=== PATIENT | male | born 1965 | race Caucasian/White ===

== ENCOUNTER 2018-03-25 20:41 | Inpatient (IN) | payer SELFPAY ==
[~2018-03-25] VITALS: Ht 167.6 cm; Wt 68.2 kg
[2018-03-25] VITALS (8 sets, daily range): BP systolic 114; BP diastolic 91; PULSE 114; TEMP 97.8; O2SAT 87–100
[~2018-03-25 20:41] MED LIST: ASPIRIN E.C. 8181 MG PO; NIGHT-TIME COL300 ML
[2018-03-25 21:27] LABS: ARTERIAL BLD GAS O2 SATURATION 94.5 % (92-100); ARTERIAL BLD GAS TCO2 CT 23.3; ARTERIAL BLOOD GAS BASE EXCESS -3.2 (-2-2); ARTERIAL BLOOD GAS HCO3 22.1 meq/L (22-26); ARTERIAL BLOOD GAS PCO2 40.5 mmHg (35-45); ARTERIAL BLOOD GAS PO2 77.3 mmHg (80-100); ARTERIAL BLOOD GAS pH 7.35 (7.35-7.45)
[2018-03-25] MEDS ORDERED: ALEVE 220MG220 MG PO (21:27)
[2018-03-25 21:28] LABS: BASO # 0.1 (0.0-0.2); BASO % 0.4 % (0.0-2.0); EOS # 0.5 (0.0-0.7); EOS % 2.3 % (0-4.0); GRAN # 17.8 (1.4-6.5); GRAN % 91.7 % (42.2-75.2); HEMATOCRIT 44.6 % (42.0-52.0); HEMOGLOBIN 14.5 g/dl (13.5-18.0); LYMPH # 0.6 (1.2-3.4); LYMPH % 2.8 % (20.0-51.0); MEAN CELL VOLUME 83 fl (80.0-100.0); MEAN CORPUSCULAR HEMOGLOBIN 27 pg (27.0-31.0); MEAN CORPUSCULAR HGB CONC 33 g/dl (33.0-37.0); MEAN PLATELET VOLUME 10.4 fl (7.4-10.4); MONO # 0.4 (0.1-0.6); MONO % 2.3 % (1.7-9.3); PLATELET COUNT 258 K/mm3 (130-400); RED BLOOD COUNT 5.37 M/mm3 (4.20-5.60); REDCELL DISTRIBUTION WIDTH-CV 15.6 % (11.5-14.5)
[2018-03-25] MEDS ORDERED: ASPIRIN 32325 MG/TAB PO (21:28)
[2018-03-25 21:38] LABS: ALBUMIN 3.1 gm/dL (3.5-5.0); BILIRUBIN,TOTAL 2.8 mg/dL (0.0-1.0); CALCIUM 8.5 mg/dL (8.4-10.2); CREATININE, serum 3.28 mg/dL (0.66-1.25); POTASSIUM 5.4 mmol/L (3.4-5.0); TOTAL PROTEIN 6.3 gm/dL (6.4-8.2)
[2018-03-25 22:14] LABS: TROPONIN-I 0.034 ng/mL (0.000-0.034)
[2018-03-25 22:50] LABS: INR 1.3 (0.8-3.0); PROTHROMBIN TIME 14.4 SECONDS (9.7-12.8)
[2018-03-25 22:52] LABS: PARTIAL THROMBOPLASTIN TIME 36.1 SECONDS (26.0-37.0)
[2018-03-25 22:58] LABS: CHOLESTEROL RISK RATIO 4.2
--- NOTE | 2018-03-25 23:10 | NUR ---
Received telephone report from STUART Mckenzie.
--- NOTE | 2018-03-25 23:45 | NUR ---
Patients scrotum is massively edematous. Circular patch approximately 4X4 inches noted to the right side of scrotum. Area appears to have white fungal growth. Groin is reddened and excoriated. Coccyx extending down towards medial buttocks excortiated and raw. Area cleansed and Allyvn bandage applied. Ulceration also noted to lateral left ankle. wound bed shallow pink with white granulation tissue present. Heel boot provided for elevation and comfort.
[2018-03-26] VITALS (401 sets, daily range): BP systolic 91–114; BP diastolic 68–91; PULSE 105–114; TEMP 97.8–98.1; O2SAT 44–100
--- NOTE | 2018-03-26 00:50 | NUR ---
Attempted matthews placement and was unsucessful. switchboard operator supervisor at bedside attempting at this time.
[2018-03-26 02:41] LABS: COLLECTION METHOD CLEAN CATCH
[2018-03-26 03:23] LABS: MUCOUS Present /lpf; PH 5 (5-8); SQUAMOUS EPITHELIAL 0-2 /hpf; URINE APPEARANCE Cloudy; URINE BACTERIA None Seen /hpf; URINE BILIRUBIN Negative (NEGATIVE); URINE BLOOD 1+ (NEGATIVE); URINE COLOR Amber; URINE GLUCOSE Negative (NEGATIVE); URINE KETONE Negative (NEGATIVE); URINE LEUKOCYTE ESTERASE Negative (NEGATIVE); URINE NITRATE Negative (NEGATIVE); URINE PROTEIN(semi-quant) 1+ (NEGATIVE); URINE UROBILINOGEN >=4.0 mg/dL (NEGATIVE)
--- NOTE | 2018-03-26 04:00 | NUR ---
Patient resting in bed with eyes shut; no concerns at this time.
--- NOTE | 2018-03-26 05:11 | NUR ---
Began 24 hr urine collection at 0510.
[2018-03-26 05:41] LABS: BASO # 0.1 (0.0-0.2); BASO % 0.5 % (0.0-2.0); EOS # 1.3 (0.0-0.7); EOS % 8.4 % (0-4.0); GRAN # 13.4 (1.4-6.5); GRAN % 83.2 % (42.2-75.2); HEMATOCRIT 38.7 % (42.0-52.0); HEMOGLOBIN 12.7 g/dl (13.5-18.0); LYMPH # 0.7 (1.2-3.4); LYMPH % 4.2 % (20.0-51.0); MEAN CELL VOLUME 82 fl (80.0-100.0); MEAN CORPUSCULAR HEMOGLOBIN 27 pg (27.0-31.0); MEAN CORPUSCULAR HGB CONC 33 g/dl (33.0-37.0); MEAN PLATELET VOLUME 10.3 fl (7.4-10.4); MONO # 0.5 (0.1-0.6); MONO % 3.1 % (1.7-9.3); PLATELET COUNT 235 K/mm3 (130-400); RED BLOOD COUNT 4.72 M/mm3 (4.20-5.60); REDCELL DISTRIBUTION WIDTH-CV 15.3 % (11.5-14.5)
[2018-03-26 05:52] LABS: ALBUMIN 2.5 gm/dL (3.5-5.0); BILIRUBIN,TOTAL 1.7 mg/dL (0.0-1.0); CALCIUM 7.9 mg/dL (8.4-10.2); CREATININE, serum 3.06 mg/dL (0.66-1.25); POTASSIUM 5.2 mmol/L (3.4-5.0); TOTAL PROTEIN 5.3 gm/dL (6.4-8.2)
--- NOTE | 2018-03-26 08:00 | NUR ---
PT ALERT AND ORIENTED X4. PT PLEASANT AND COOPERATIVE. PT LUNGS CLEAR TO UPPER LOBES, DIM TO BB. PT DENIES COUGH. PT HAS MODERATE AMT OF ANASCARA. REDNESS AND EDEMA NOTED FROM MID ABDOMEN TO BLL. PT'S GROIN, SCROTUM VERY EXCORIATED, SEEPING, AND TENDER. PT HAS SEROUS AND PURULENT DRAINAGE NOTED FROM SCROTUM, GROIN, AND COCCYX. COCCYX RED AND EXCORIATED. PT ALSO HAS ULCERATION TO LEFT OUTER TROCHANTER OF ANKLE. SMALL SCABBED AREAS NOTED TO BILATERAL INNER ANKLES. NO DRAINAGE FROM THOSE AREAS.
--- NOTE | 2018-03-26 09:05 | NUR ---
PT TAKEN TO CT VIA BED BY PAIGE IN RADIOLOGY.
--- NOTE | 2018-03-26 09:45 | NUR ---
SPOKE WITH DR BUTLER REGARDING PT AND UPDATED HIM ON PT'S TROPONIN, TACHYCARDIA, AND FREQUENT PVCS.
--- NOTE | 2018-03-26 10:15 | NUR ---
Initial visit; Patient thanked Account Information Clerk for looking in on him and offering encouragement and prayer.
--- NOTE | 2018-03-26 10:20 | NUR ---
DR SEGOVIA CALLED REGARDING PATIENT'S WOUNDS/SKIN PER DR JALLOH'S REQUEST.
--- NOTE | 2018-03-26 10:30 | NUR ---
SPOKE WITH DR SANTOS REGARDING IMAGING FOR PT'S SKIN ISSUES. DR SANTOS RECOMMENDS OBTAINING CT PELVIS TO EVALUATE FOR GAS, WITHOUT CONTRAST D/T PT'S CREATININE.
--- NOTE | 2018-03-26 11:00 | NUR ---
PT'S GROIN, COCCYX, PERINAL AREA, LEFT OUTER ANKLE, AND SCROTUM CLEANSED WITH SOAP AND WATER. NYSTATIN POWDER APPLIED TO GROIN, LOKESH AREA, AND COCCYX. NYSTATIN CREAM APPLIED TO SCROTUM AND LEFT OUTER ANKLE ULCER. SCRTOUM ELEVATED USING CHUX PAD. LEFT ANKLE COVERED WITH GAUZE SPONGES AND COBAIN. LEFT HEEL PROTECTOR REAPPLIED AND LEFT ANKLE ELEVATED.
--- NOTE | 2018-03-26 11:15 | NUR ---
US HERE TO PERFORM RENAL US.
--- NOTE | 2018-03-26 11:32 | NUR ---
Plan to DC home unless otherwise specified by . DONALD met with patient to discuss care. Patient reports that he has a GF at home that helps hime out and and EMR contact Nafisa Mackenzie . Pt reports the use os a cane everyday. Patient indicated difficulty breathing while walking, may need RT assessment. Patient reports that he resides in [place]. NO PCP reported. PT declines homehealth and uses [facility] locally for RX. DONALD made contact with financial to assist PT with bill or any health coverage. DONALD will continue to follow care.
--- NOTE | 2018-03-26 13:47 | NUR ---
BA REVELES INSERTING PICC LINE AT THIS TIME.
--- NOTE | 2018-03-26 13:55 | NUR ---
PORTABLE CHEST XRAY PERFORMED TO VERIFY PICC LINE PLACEMENT.
--- NOTE | 2018-03-26 14:01 | NUR ---
OR UPDATED AND STATED THEY WILL COME TO RETRIEVE PATIENT AROUND 1420. CONSENT OBTAINED FROM PT. PT AND GF UPDATED ON PLAN OF CARE.
--- NOTE | 2018-03-26 14:30 | NUR ---
PATIENT LEAVES FOR OR AT THIS TIME
--- NOTE | 2018-03-26 14:35 | NUR ---
PT TAKEN TO OR FOR I&D BY OR STAFF
--- NOTE | 2018-03-26 15:35 | NUR ---
ETT MEYER PLACED ON ETT. MAINTAINED ETT AT 21CM AT LIP. 8.[address] 14 [place]ER OGT INSERTED TO 70CM. PLACEMENT VERIFIED WITH AIR BOLUS AND ASPIRATION OF GASTRIC CONTENTS. PROPOFOL AND FENTANYL INITIATED FOR SEDATION. WRIST RESTRAINTS APPLIED. HEAD-TO-TOE ASSESSMENT PERFORMED.
--- NOTE | 2018-03-26 15:35 | NUR ---
PT UNEXPECTEDLY BROUGHT FROM OR BY OR STAFF AND JAMIE STEVENS. RT IN ICU AT THE TIME OF PATIENT'S ARRIVAL, RT UNAWARE PT WAS ON HIS WAY BACK TO THE UNIT AT THIS TIME. JAMIE STEVENS CALLED TO REQUEST VENT PRIOR BUT ICU STAFF AND RT WERE NOT MADE AWARE OF PT COMING BACK FROM OR. PT LOOSELY HAD AN ETT IN PLACE, SERCURED WITH TAPE. PT NOT ON VENT TO TRANSPORT AND BEING SCANTLY BAGGED BY JAMIE STEVENS. WHEN ASKED HOW PT'S BP WAS MAINTAINING JAMIE STEVENS STATED "WE WILL FIND OUT WHEN WE HOOK HIM UP TO YOUR MONITOR". PT NOT PLACED ON TRANSPORT MONITOR FOR TRANSFER FROM OR. NO PULSE OX IN PLACE, NO BP IN PLACE, NO TELMETRY IN PLACE. ICU STAFF STATED THAT TYPICALLY PER PROTOCOL OR STAFF SHOULD GIVE REPORT PRIOR TO TRANSFERRING PATIENT. JAMIE STEVENS STATED "REPORT ON WHAT!?" I THEN ASKED IF I COULD BE GIVEN REPORT ON WHAT HAPPENED/WHAT WAS FOUND IN OR, WHAT SIZE ETT TUBE WAS INSERTED AND AT WHAT LENGTH. I THEN ASKED WHY PATIENT HAD NOT BEEN EXTUBATED AND IF THEY WERE NOT ABLE TO. JAMIE STEVENS THEN STATED "BC THEY TOLD US TO KEEP HIM INTUBATED". I THEN STATED THAT IT WAS A GOOD THING RT WAS IN THE UNIT UPON TRANSFER AND JAMIE STEVENS STATED "I CALLED RT" ALLEN RT IN ROOM AND STATED SHE WAS NOT CALLED. JAMIE THEN STATED "WELL I CALLED RT FOR A VENT". I THEN STATED "YES YOU CALLED FOR A VENT BUT NOT TO NOTIFY US OR RT THAT THE PATIENT WAS ON THEIR WAY FROM OR".
--- NOTE | 2018-03-26 15:39 | NUR ---
PATIENT RETURNS FROM OR, INTUBATED. VENTILATOR READY. SEDATION STARTED PER DR. JALLOH ORDERS.
--- NOTE | 2018-03-26 15:45 | NUR ---
ATTEMPTED TO FIND PT'S GF TO UPDATE HER BUT WAS UNSUCCESSFUL.
--- NOTE | 2018-03-26 16:02 | NUR ---
PT CAME BACK FROM OR ABOUT 20 MIN AGO. VENT PUT IN PLACE ORDER PER DR. JALLOH. NO DISTRESS NOTED AT THIS TIME.
[2018-03-26 16:42] LABS: ARTERIAL BLD GAS O2 SATURATION 92.2 % (92-100); ARTERIAL BLD GAS TCO2 CT 23.4; ARTERIAL BLOOD GAS BASE EXCESS -5.2 (-2-2); ARTERIAL BLOOD GAS HCO3 21.9 meq/L (22-26); ARTERIAL BLOOD GAS PCO2 49.1 mmHg (35-45); ARTERIAL BLOOD GAS PO2 71.7 mmHg (80-100); ARTERIAL BLOOD GAS pH 7.27 (7.35-7.45)
[2018-03-26 16:58] LABS: BASO # 0.1 (0.0-0.2); BASO % 0.4 % (0.0-2.0); EOS # 0.8 (0.0-0.7); GRAN # 14.2 (1.4-6.5); HEMATOCRIT 38.1 % (42.0-52.0); HEMOGLOBIN 12.4 g/dl (13.5-18.0); LYMPH # 0.6 (1.2-3.4); LYMPH % 3.4 % (20.0-51.0); MEAN CELL VOLUME 82 fl (80.0-100.0); MEAN CORPUSCULAR HEMOGLOBIN 27 pg (27.0-31.0); MEAN CORPUSCULAR HGB CONC 33 g/dl (33.0-37.0); MEAN PLATELET VOLUME 10.8 fl (7.4-10.4); MONO # 0.5 (0.1-0.6); MONO % 3.2 % (1.7-9.3); PLATELET COUNT 250 K/mm3 (130-400); RED BLOOD COUNT 4.63 M/mm3 (4.20-5.60); REDCELL DISTRIBUTION WIDTH-CV 15.6 % (11.5-14.5)
[2018-03-26 17:10] LABS: CALCIUM 7.6 mg/dL (8.4-10.2); CREATININE, serum 2.94 mg/dL (0.66-1.25); MAGNESIUM 1.9 mg/dL (1.6-2.3); PHOSPHOROUS 5.5 mg/dL (2.5-4.5); POTASSIUM 5.2 mmol/L (3.4-5.0)
[2018-03-26 17:25] LABS: C-REACTIVE PROTEIN 15.6 mg/dL (0.0-0.9)
--- NOTE | 2018-03-26 17:59 | NUR ---
INCREASED RR PER DR. CONTRERAS AT BEDSIDE PER ABG RESULTS.
[2018-03-26 18:25] LABS: ARTERIAL BLD GAS O2 SATURATION 98.2 % (92-100); ARTERIAL BLD GAS TCO2 CT 22.3; ARTERIAL BLOOD GAS BASE EXCESS -2.3 (-2-2); ARTERIAL BLOOD GAS HCO3 21.3 meq/L (22-26); ARTERIAL BLOOD GAS PCO2 33.4 mmHg (35-45); ARTERIAL BLOOD GAS PO2 112.3 mmHg (80-100); ARTERIAL BLOOD GAS pH 7.42 (7.35-7.45)
--- NOTE | 2018-03-26 19:00 | NUR ---
PATIENT ACCEPTED TO [facility] ROOM 217 AT THIS TIME.
--- NOTE | 2018-03-26 19:45 | NUR ---
PATIENT LEAVES WITH [facility] AT THIS TIME.
--- NOTE | 2018-03-26 19:46 | NUR ---
REPORT CALLED TO [facility] ICU. PLAN OF CARE DISCUSSED.
== END 2018-03-26 19:50 | disposition short-term general hospital (02) | DRG 853 ==
LOC: COL.ER 20:41 → ICU 21:57
PROVIDERS: Family Medicine; Internal Medicine Pulmonary Disease; Nurse Practitioner Family; Urology; ADMIT Family Medicine
PROC: 0VB50ZZ Excision of Scrotum, Open Approach (ICD-10-PCS; principal; 2018-03-26 16:45)
DX: A41.9 Sepsis, unspecified organism (principal); M72.6 Necrotizing fasciitis; J18.9 Pneumonia, unspecified organism; J96.01 Acute respiratory failure with hypoxia; I50.31 Acute diastolic (congestive) heart failure; N17.9 Acute kidney failure, unspecified; J44.0 Chronic obstructive pulmonary disease with (acute) lower respiratory infection; B37.49 Other urogenital candidiasis; E87.2 Acidosis; E87.1 Hypo-osmolality and hyponatremia; L03.116 Cellulitis of left lower limb; N49.3 Fournier gangrene; R65.20 Severe sepsis without septic shock; E78.5 Hyperlipidemia, unspecified; F17.210 Nicotine dependence, cigarettes, uncomplicated; E87.5 Hyperkalemia; L30.4 Erythema intertrigo; I27.23 Pulmonary hypertension due to lung diseases and hypoxia; R60.1 Generalized edema; I07.1 Rheumatic tricuspid insufficiency; L89.159 Pressure ulcer of sacral region, unspecified stage
CPT/HCPCS: 99223-AI; 99239; A4216; C1751; J0330; J0692; J1450; J1940; J2270; J2370; J2543; J2704; J3010; J3370; J7030; J7050

== ENCOUNTER → 2019-08-31 | Outpatient (CLI) | payer MEDICAID ==
[~2019-08-31] MED LIST changes: +ALEVE 220MG220 MG PO; +ASPIRIN 32325 MG/TAB PO
== END ==
LOC: COL.RAD 13:54
DX: R29.898 Other symptoms and signs involving the musculoskeletal system (principal)
CPT/HCPCS: A9585

== ENCOUNTER → 2019-09-08 | Outpatient (CLI) | payer MEDICAID | LOC: COL.RAD 13:37 | DX: M51.16 Intervertebral disc disorders with radiculopathy, lumbar region (principal) ==

== ENCOUNTER → 2019-10-10 | Outpatient (CLI) | payer MEDICAID | LOC: COL.RAD | DX: M47.22 Other spondylosis with radiculopathy, cervical region (principal); M48.02 Spinal stenosis, cervical region; M50.31 Other cervical disc degeneration, high cervical region; M50.21 Other cervical disc displacement, high cervical region ==

== ENCOUNTER 2020-01-12 18:51 | Emergency (ER) | payer MEDICAID ==
[~2020-01-12] VITALS: Ht 162.6 cm; Wt 77.3 kg
[2020-01-12 19:02] VITALS: TEMP 97.2
[2020-01-12 19:45] LABS: BASO # 0.1 (0.0-0.2); BASO % 0.6 % (0.0-2.0); EOS # 0.4 (0.0-0.7); EOS % 3.4 % (0-4.0); GRAN # 7.1 (1.4-6.5); GRAN % 65.5 % (42.2-75.2); HEMATOCRIT 40.1 % (42.0-52.0); LYMPH # 2.5 (1.2-3.4); LYMPH % 23.2 % (20.0-51.0); MEAN CELL VOLUME 88 fl (80.0-100.0); MEAN CORPUSCULAR HEMOGLOBIN 28 pg (27.0-31.0); MEAN CORPUSCULAR HGB CONC 32 g/dl (33.0-37.0); MEAN PLATELET VOLUME 10.8 fl (7.4-10.4); MONO # 0.8 (0.1-0.6); PLATELET COUNT 302 K/mm3 (130-400); RED BLOOD COUNT 4.58 M/mm3 (4.20-5.60); REDCELL DISTRIBUTION WIDTH-CV 13.3 % (11.5-14.5)
[2020-01-12 19:52] LABS: PROTHROMBIN TIME 11.2 SECONDS (9.7-12.8)
[2020-01-12 19:57] LABS: ALANINE AMINOTRANSFERASE 41 U/L (4-49); ALBUMIN 3.9 gm/dL (3.5-5.0); ALKALINE PHOSPHATASE 63 U/L (50-136); ANION GAP 7 mmol/L (7-16); AST,SGOT 53 U/L (15-37); BILIRUBIN,TOTAL 0.4 mg/dL (0.0-1.0); BLOOD UREA NITROGEN 14 mg/dL (9-20); CALCIUM 9.2 mg/dL (8.4-10.2); CARBON DIOXIDE 28 mmol/L (22-30); CHLORIDE 100 mmol/L (98-107); CREATININE, serum 0.69 (0.66-1.25); GLUCOSE 108 mg/dL (74-106); POTASSIUM 4.1 mmol/L (3.4-5.0); SODIUM 135 mmol/L (137-145); TOTAL PROTEIN 6.6 gm/dL (6.4-8.2)
[2020-01-12 20:10] LABS: TROPONIN-I < 0.012 ng/mL (0.000-0.035)
[2020-01-12 20:54] VITALS: BP 151/89; PULSE 78
[2020-01-12] MEDS ORDERED: NEURONTIN300 MG/CAP PO (21:02)
[2020-01-12] MEDS ORDERED: TOPROL XL 50MG50 MG PO (21:02)
[2020-01-12] MEDS ORDERED: ASPIRIN 81M81 MG/TA2 PO (21:02)
[2020-01-12] MEDS ORDERED: GLUCOPHAGE500 MG/TAB PO (21:02)
[2020-01-12] MEDS ORDERED: ULTRAM 50MG TAB50 MG PO (21:03)
[2020-01-12] MEDS ORDERED: ZESTRIL2.5 MG PO (21:03)
[2020-01-12] MEDS ORDERED: FLEXERIL 1010 MG/TAB PO (21:04)
[2020-01-12] MEDS ORDERED: TYLENOL 500MG500 MG PO (21:04)
[2020-01-12] MEDS ORDERED: LASIX 20MG TABL20 MG PO (21:05)
[2020-01-12] MEDS ORDERED: DESYREL 50MG50 MG PO (21:05)
== END 2020-01-12 21:06 | disposition short-term general hospital (02) ==
LOC: COL.ER 18:51
PROVIDERS: Emergency Medicine
DX: M48.02 Spinal stenosis, cervical region (principal); I11.0 Hypertensive heart disease with heart failure; I50.9 Heart failure, unspecified; E11.9 Type 2 diabetes mellitus without complications; Z79.82 Long term (current) use of aspirin; Z79.84 Long term (current) use of oral hypoglycemic drugs
CPT/HCPCS: J2270